=== PATIENT | male | born 1985 | race African-American/Black ===

== ENCOUNTER 2017-08-06 02:10 | Emergency (ER) | payer MEDICAID ==
[~2017-08-06] VITALS: Ht 195.6 cm; Wt 181.8 kg
[2017-08-06] MEDS ORDERED: METF500T4 PO (02:15)
[2017-08-06] MEDS ORDERED: LISI-662 PO (02:15)
[2017-08-06] MEDS ORDERED: NAPR-58 PO (02:15)
[2017-08-06 02:23] LABS: GLUCOSE,POINT OF CARE 166 MG/DL (70-110)
[2017-08-06] MEDS ORDERED: KETOROLAC TROMETHAMINE 60 MG/2 ML VIAL IM ONE (03:00)
[2017-08-06 03:18] VITALS: BP 143/88
== END 2017-08-06 03:26 | disposition home or self-care (01) ==
LOC: EMS 02:11
DX: M54.5 Low back pain (principal); G89.29 Other chronic pain; E11.9 Type 2 diabetes mellitus without complications; E78.00 Pure hypercholesterolemia, unspecified; I10 Essential (primary) hypertension; E66.9 Obesity, unspecified; Z68.42 Body mass index [BMI] 45.0-49.9, adult; Z88.5 Allergy status to narcotic agent; Z88.6 Allergy status to analgesic agent
CPT/HCPCS: 82962; 96372; 99283; J1885

== ENCOUNTER 2017-12-07 00:42 | Emergency (ER) | payer MEDICAID ==
[~2017-12-07] VITALS: Ht 190.5 cm; Wt 189.1 kg
[~2017-12-07 00:42] MED LIST: LISI-662 PO; METF500T6 PO; NAPR-58 PO
[2017-12-07 00:54] LABS: GLUCOSE,POINT OF CARE 161 MG/DL (70-110)
[2017-12-07] MEDS ORDERED: METF500T6 PO (01:02)
[2017-12-07 02:23] VITALS: BP 160/107
== END 2017-12-07 02:26 | disposition home or self-care (01) ==
LOC: EMS 00:42
DX: S46.911A Strain of unspecified muscle, fascia and tendon at shoulder and upper arm level, right arm, initial encounter (principal); J45.909 Unspecified asthma, uncomplicated; E11.9 Type 2 diabetes mellitus without complications; I10 Essential (primary) hypertension; G89.29 Other chronic pain; E66.9 Obesity, unspecified; Z68.43 Body mass index [BMI] 50.0-59.9, adult; Z88.6 Allergy status to analgesic agent; Z88.8 Allergy status to other drugs, medicaments and biological substances; Z79.899 Other long term (current) drug therapy; Z79.84 Long term (current) use of oral hypoglycemic drugs; X58.XXXA Exposure to other specified factors, initial encounter; Y93.39 Activity, other involving climbing, rappelling and jumping off; Y92.89 Other specified places as the place of occurrence of the external cause; Y99.8 Other external cause status
CPT/HCPCS: 99282

== ENCOUNTER 2019-03-07 01:23 | Emergency (ER) | payer MEDICAID ==
[~2019-03-07] VITALS: Ht 190.5 cm; Wt 193.6 kg
[~2019-03-07 01:23] MED LIST changes: +METF-960 PO; -METF500T6 PO; -NAPR-58 PO
[2019-03-07 01:44] LABS: GLUCOSE,POINT OF CARE 205 MG/DL (70-110)
[2019-03-07 02:15] VITALS: BP 154/91
[2019-03-07] MEDS ORDERED: BACITRACIN 0.9 GM PACKET OINTMENT TP ONE (02:30)
== END 2019-03-07 02:31 | disposition home or self-care (01) ==
LOC: EMS 01:24
DX: L84 Corns and callosities (principal); E11.9 Type 2 diabetes mellitus without complications; E66.9 Obesity, unspecified; I10 Essential (primary) hypertension; G89.29 Other chronic pain; J45.909 Unspecified asthma, uncomplicated; Z98.890 Other specified postprocedural states; Z79.899 Other long term (current) drug therapy; Z88.6 Allergy status to analgesic agent; Z88.5 Allergy status to narcotic agent; Z68.43 Body mass index [BMI] 50.0-59.9, adult